=== PATIENT | male | born 1970 | race Caucasian/White ===

== ENCOUNTER 2020-01-22 22:48 | Emergency (ER) | payer BC ==
[~2020-01-22] VITALS: Ht 185.4 cm; Wt 117.9 kg
[2020-01-23 00:53] LABS: ANION GAP 9 mmol/L (7-16); BUN 14 mg/dL (7-18); CALCIUM 9.2 mg/dL (8.5-10.1); CHLORIDE 106 mmol/L (98-107); CO2 27 mmol/L (21-32); CREATININE 0.9 mg/dL (0.7-1.3); GLUCOSE 96 mg/dL (74-106); POTASSIUM 4.1 mmol/L (3.5-5.1); SODIUM 142 mmol/L (136-145)
[2020-01-23 00:54] LABS: URINE BILIRUBIN NEGATIVE (Negative); URINE BLOOD NEGATIVE (Negative); URINE CLARITY CLEAR; URINE COLOR YELLOW; URINE GLUCOSE-RANDOM* NEGATIVE (Negative); URINE KETONES NEGATIVE (Negative); URINE LEUKOCYTES-REFLEX NEGATIVE (Negative); URINE NITRITE-REFLEX NEGATIVE (Negative); URINE PROTEIN (DIPSTICK) NEGATIVE (Negative); URINE SPECIFIC GRAVITY >= 1.030 (1.005-1.035); URINE UROBILINOGEN 0.2 E.U./dl (0.2-1.0)
[2020-01-23 00:55] LABS: ABSOLUTE NEUTROPHILS 6.1 thou/uL (1.4-8.2); BASOPHILS 0.4 % (0.0-2.0); EOSINOPHILS 1.4 % (0.0-3.0); HEMATOCRIT 46.7 % (42.0-52.0); HEMOGLOBIN 15.8 gm/dL (14.0-18.0); LYMPHOCYTES 30.4 % (24.0-44.0); MCH 30.7 pg (26.0-34.0); MCHC 33.8 g/dL (28.0-37.0); MCV 90.8 fL (80.0-100.0); MONOCYTES 8.5 % (1.0-8.0); PLATELET COUNT 217 thou/uL (150-400); POLYS 59.3 % (36.0-66.0); RBC 5.14 mil/uL (4.50-6.00); RDW 13.4 % (10.5-14.5); WBC 10.2 thou/uL (4.0-11.0)
[2020-01-23 00:59] LABS: APTT 30.2 Seconds (24.5-32.8)
[2020-01-23 01:02] LABS: AMP/METHAMP Negative (Negative); BARBITURATES Negative (Negative); BENZODIAZEPINES Negative (Negative); COCAINE Negative (Negative); METHADONE Negative (Negative); OPIATES Negative (Negative); PCP Negative (Negative)
[2020-01-23 01:10] LABS: MAGNESIUM 2.1 mg/dL (1.8-2.4); SGOT 24 U/L (15-37); SGPT 50 U/L (30-65); TOTAL BILIRUBIN 0.4 mg/dL (0.2-1.0); TOTAL PROTEIN 7.3 g/dL (6.4-8.2); TROPONIN-I <0.06 ng/mL (<0.06)
[2020-01-23 01:45] VITALS: BP 130/88
--- NOTE | 2020-01-23 08:33 | EKG ---
[facility] [address] ELECTROCARDIOGRAM REPORT Name: SIVAMARLON Room #: DEP [facility]#: [id number] Admission: 01/22/20 Attend Phys: Discharge: 01/23/20 Date of : 66 Report #: [id number] THIS REPORT FOR: cc: Martina Scanlon K. Steven DO Lundgren, Craig H. MD 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
== END 2020-01-23 01:50 | disposition home or self-care (01) ==
LOC: ER 22:48
PROVIDERS: Emergency Medicine
DX: G45.9 Transient cerebral ischemic attack, unspecified (principal); I10 Essential (primary) hypertension; E78.5 Hyperlipidemia, unspecified